=== PATIENT | male | born 1995 | race Caucasian/White ===

== ENCOUNTER 2021-10-09 15:51 | Emergency (ER) | payer MEDICAID ==
[~2021-10-09] VITALS: Ht 175.3 cm; Wt 104.5 kg
[2021-10-09 16:49] VITALS: BP 140/71
[2021-10-09] MEDS ORDERED: orphenadrine citrate 60mg/2ml inj. IM ONE (18:00)
[2021-10-09] MEDS ORDERED: ketorolac trometh. 30mg/ml inj. IM ONE (18:00)
[2021-10-09] MEDS ORDERED: IBUP-1986 PO (18:31)
[2021-10-09] MEDS ORDERED: CYCL-1 PO (18:31)
== END 2021-10-09 19:35 | disposition home or self-care (01) ==
LOC: ER 15:52
DX: S46.912A Strain of unspecified muscle, fascia and tendon at shoulder and upper arm level, left arm, initial encounter (principal); M25.512 Pain in left shoulder; M54.2 Cervicalgia; R20.0 Anesthesia of skin; Z79.899 Other long term (current) drug therapy; V99.XXXA Unspecified transport accident, initial encounter; Y93.89 Activity, other specified; Y92.89 Other specified places as the place of occurrence of the external cause; Y99.8 Other external cause status
CPT/HCPCS: 72040; 96372; 99284; J1885; J2360

== ENCOUNTER 2022-07-01 17:19 | Emergency (ER) | payer SELFPAY ==
[~2022-07-01] VITALS: Ht 175.3 cm; Wt 106.0 kg
[~2022-07-01 17:19] MED LIST: CYCL-1 PO; IBUP-1986 PO
[2022-07-01 17:23] VITALS: BP 154/102
[2022-07-01 17:56] LABS: BASOPHILS # (AUTO) 0.1 X10'3 (0-0.2); BASOPHILS % (AUTO) 0.8 % (0-1); EOSINOPHILS # (AUTO) 0.2 X10'3 (0-0.9); EOSINOPHILS % (AUTO) 2.1 % (0-6); HEMATOCRIT 47.9 % (42.0-52.0); HEMOGLOBIN 15.9 g/dl (14.0-17.9); LYMPHOCYTES # (AUTO) 3.9 X10'3 (1.1-4.8); LYMPHOCYTES % (AUTO) 34.1 % (21-51); MEAN CORPUSCULAR HEMOGLOBIN 28.6 PG (27.0-31.0); MEAN CORPUSCULAR HGB CONC 33.1 g/dL (33.0-36.5); MEAN CORPUSCULAR VOLUME 86.4 FL (78-98); MEAN PLATELET VOLUME 8.7 FL (7.4-10.4); MONOCYTES # (AUTO) 0.7 X10'3 (0-0.9); MONOCYTES % (AUTO) 6.5 % (2-12); NEUTROPHILS # (AUTO) 6.5 X10'3 (1.8-7.7); NEUTROPHILS % (AUTO) 56.5 % (42-75); PLATELET COUNT 243 X10'3 (140-440); RED BLOOD COUNT 5.55 X10'6 (4.70-6.10); RED CELL DISTRIBUTION WIDTH 13.2 % (11.5-14.5); WHITE BLOOD COUNT 11.6 X10'3 (4.5-11.0)
[2022-07-01 17:58] LABS: CLARITY,URINE CLEAR (Clear); COLOR,URINE YELLOW (Yellow); GLUCOSE, URINE NEGATIVE (Neg); KETONES,URINE 15 mg/dl (Neg); LEUKOCYTE ESTERASE ,URINE NEGATIVE (Neg); NITRITES, URINE NEGATIVE (Neg); OCCULT BLOOD,URINE NEGATIVE (Neg); PH,URINE 7.5 (4.8-8.0); PROTEIN,URINE NEGATIVE (Neg); UROBILINOGEN,URINE 0.2 E.U/dL (0.2-1.0)
[2022-07-01 17:59] LABS: UA COLLECTION TYPE CLN CATCH MIDSTREAM
[2022-07-01 18:05] LABS: ALANINE AMINOTRANSFERASE 42 U/L (12-78); ALBUMIN 4.5 G/DL (3.4-5.0); ALBUMIN/GLOBULIN RATIO 1.5 (1.1-1.5); ALKALINE PHOSPHATASE 62 IU/L (46-116); ANION GAP 8 (8-16); ASPARTATE AMINO TRANSFERASE 23 U/L (10-37); BILIRUBIN,TOTAL 0.7 MG/DL (0.1-1.0); BLOOD UREA NITROGEN 14 MG/DL (7-18); BUN/CREATININE RATIO 15.6 (5.4-32.0); CALCIUM 9.2 MG/DL (8.5-10.1); CHLORIDE 102 MMOL/L (99-107); GLUCOSE 108 MG/DL (70-104); LIPASE 104 U/L (73-393); POTASSIUM 3.5 MMOL/L (3.5-5.1); SODIUM 138 MMOL/L (135-145); TOTAL CARBON DIOXIDE 27.9 MMOL/L (24-32); TOTAL PROTEIN 7.6 G/DL (6.4-8.2); eGFR > 90 ML/MIN
== END 2022-07-01 20:01 | disposition left against medical advice (07) ==
LOC: ER 17:20
DX: R10.84 Generalized abdominal pain (principal); Z53.21 Procedure and treatment not carried out due to patient leaving prior to being seen by health care provider
CPT/HCPCS: 36415; 80053; 81003; 83690; 85025